=== PATIENT | female | born 1945 | race Caucasian/White ===

== ENCOUNTER 2020-06-19 10:55 | Emergency (ER) | payer MEDICARE, MEDICAID, SELFPAY ==
--- NOTE | ~2020-06-19 | CT_ITS ---
EXAMINATION: CT ABDOMEN AND PELVIS WITH CONTRAST CLINICAL INFORMATION: Perineal skin infection. Rule out abscess COMPARISON: None TECHNIQUE: Multidetector volumetric images were obtained from the superior aspect of the liver through the pubic symphysis following administration 85 mL of Omnipaque 350 intravenous contrast. Sagittal and coronal reformatted images were obtained on the technologist's workstation. Oral contrast: No This CT examination was performed using dose optimization techniques as appropriate, variously including the following: *Automated exposure control *Adjustment of mA and/or kV according to patient size (this includes techniques or standardized protocols for targeted exams where dose is matched to indication/reason for exam; i.e. extremities or head) *Use of iterative reconstruction technique DLP: 498 mGy-cm FINDINGS: LUNG BASES: There is diffuse emphysematous changes of both lungs with no focal lesion seen. The heart size is normal. LIVER, GALLBLADDER, AND BILIARY TREE: The liver is normal in size, shape, and attenuation. No focal hepatic lesion or biliary ductal dilatation is present. The gallbladder was surgically removed. PANCREAS: Unremarkable. SPLEEN: Unremarkable. ADRENAL GLANDS: Unremarkable. KIDNEYS AND URETERS: The kidneys are normal in size, shape, and attenuation. No hydronephrosis, hydroureter, or calculi seen. No perinephric stranding. BLADDER: Unremarkable. GASTROINTESTINAL TRACT: There is moderate stool, diverticuli and gas seen throughout the colon without any significant distention the small bowel loops are normal caliber. The stomach is nondistended. The appendix is normal caliber. There is no free air or free fluid. ABDOMINAL WALL: No significant hernia is appreciated. LYMPH NODES: Normal. VASCULAR: Unremarkable. PELVIC VISCERA: There is no free fluid. No free air seen. No abnormal inguinal or pelvic lymph nodes seen. There is no mass, abscess or free collection in the perineal region. There is nonspecific mild mural thickening of the anorectal junction but no focal mass seen OSSEOUS STRUCTURES: There is diffuse osteopenia with osteoporotic compression deformities L5, L4 L2, T12 vertebra. CT/CT abdomen pelvis w con IMPRESSION: Nonspecific mild mural thickening of anorectal junction. No mass identified. There is no perineal or ischiorectal abscess. Diffuse colonic diverticulosis without diverticulitis..
[2020-06-19 11:08] VITALS: BP 121/70; BP 138/90; PULSE 100; PULSE 118; RESP 18; TEMP 37.2; O2SAT 98; BMI 20.2
[2020-06-19 14:19] LABS: Glucose Urine UA NEG (NEG); Leukocyte Esterase Urine NEG (NEG); Nitrite Urine NEG (NEG); PH 5.5 (5.0-8.0); Specific Gravity - Urine >= 1.030 (1.005-1.025); Urine Blood NEG (NEG); Urine Ketones 5 MG/DL (NEG); Urine Protein 1+ MG/DL (NEG-TRACE)
[2020-06-19 14:20] LABS: Appearance Urine HAZY; Color Urine YELLOW
[2020-06-19 14:30] LABS: Bacteria Urine TRACE /LPF; Mucus Urine 2+ /LPF; RBC Urine 0-2 /HPF (0); Squamous Epithelial Cell Urine 2+ /LPF
[2020-06-19 14:44] LABS: Basophils Percent Auto 0.3 % (0-2); Eosinophils Percent Auto 0.3 % (0-4); Hematocrit 39.9 % (37-47); Hemoglobin 12.8 g/dl (12.0-16.0); Imm Gran Abs Auto 0.04 X10*3/uL (0.00-0.03); Imm Gran Pct Auto 0.4 % (0.0-0.4); Lymphocytes Absolute Auto 0.5 X10*3/uL (1.2-4.9); Lymphocytes Percent Auto 4.9 % (20-40); MANUAL DIFF FLAG SCAN; Mean Corpuscular HGB Conc 32.1 g/dl (31.0-35.0); Mean Corpuscular Hemoglobin 29.6 pg (27.0-33.0); Mean Corpuscular Volume 92.4 fL (80-98); Mean Platelet Volume 9.2 fL (9.4-12.3); Monocytes Percent Auto 9.8 % (2-11); Neutrophils Absolute Auto 8.8 X10*3/uL (2.0-8.3); Neutrophils Percent Auto 84.3 % (45-73); Platelet Count 316 X10*3/uL (160-400); Red Blood Count 4.32 X10*6/uL (4.20-5.50); Red Cell Distribution Width 12.9 % (11.0-16.0); SCAN SMEAR FLAG 1; White Blood Count 10.5 X10*3/uL (4.8-10.8)
[2020-06-19] MEDS: Doxycycline Hyclate 100 MG in 0.9 % Sodium Chloride 250 ML 166.67 MG IV (14:46)
[2020-06-19] MEDS: 0.9 % Sodium Chloride 1,000 ML 999 ML IVCONT (14:47)
[2020-06-19 14:52] VITALS: BP 102/43; PULSE 85; RESP 18; TEMP 36.4; O2SAT 98
[2020-06-19 14:59] LABS: Lactic Acid 3.1 mmol/L (0.5-2.0)
[2020-06-19 15:03] LABS: Alanine Aminotransferase 12 U/L (0-31); Albumin Level 3.7 g/dL (3.5-5.0); Alkaline Phosphatase 93 U/L (39-117); Anion Gap 15 (12-20); Aspartate Amino Transferase 19 U/L (5-31); Bilirubin Direct 0.2 mg/dL (0.0-0.5); Bilirubin Total 0.6 mg/dL (0.0-1.0); Blood Urea Nitrogen 23 mg/dL (9-16); Calcium 8.9 mg/dL (8.4-10.2); Carbon Dioxide 27 mmol/L (22-29); Chloride 105 mmol/L (96-108); Creatinine Clr Calc Pharmacy 67.1; Estimated Glomerular Filt Rate > 60; Glucose Random 97 mg/dL (60-115); Potassium 4.6 mmol/L (3.3-5.1); Sodium 142 mmol/L (135-145); Total Protein 6.5 g/dL (6.5-8.0)
[2020-06-19 15:17] LABS: SLIDE REVIEW VERIFIED
[2020-06-19] MEDS: Nystatin Cream 15 GM TUBE 1 APPL TOPICAL (15:21)
--- NOTE | 2020-06-19 15:29 | PC.NURSE ---
pt moved to room 18 for more extensive medical workup. pt offers no new complaints, appears cheerful. iv established, blood labs an cx obtained and sent. medicated per emar. sinus rhythm on tele, hr [address] scans. [facility] staff at bedside. theo.
[2020-06-19] MEDS: iohexoL 350 MG/ML 75 ML INFUS..BTL IV (15:44)
[2020-06-19 16:16] VITALS: BP 122/43; PULSE 79; TEMP 36.6; O2SAT 98
--- NOTE | 2020-06-19 16:27 | ED_ITS ---
HPI - General Adult General Chief complaint: Fall Stated complaint: FALL FROM W/C,R ARM SKIN TEAR,+COLLAR Time Seen by Provider: 06/19/20 11:53 History of Present Illness HPI narrative: Patient is a retirement patient with her attendant who had a fall while transferring from wheelchair to bed and was found on the floor unable to get up but fully conscious alert with no complaints of any new injury or pain, she remembers the fall she denies any headache or neck pain Her [employer] who knows her well voiced concern that she might have a UTI as she seems to be a little more confused than normal over past weeks but the patient has no complaint of burning with urination or fever or nausea The [employer] also is concerned about a worsening wound in her groin area and gluteal area The [employer] says the diaper is changed frequently Related Data Previous Rx's Medication Instructions Recorded ascorbic acid (vitamin C) 1,000 mg 1 g PO BID 90 Days #180 tab 05/05/20 tablet methenamine hippurate 1 gram tablet 1 g PO BID #56 tab 05/05/20 omeprazole 20 mg capsule,delayed 20 mg PO DAILY #90 cap 05/05/20 release ferrous sulfate 325 mg (65 mg 325 mg PO BID #180 tab 05/22/20 iron) tablet Lactobacil rhamnosus GG 10 billion 1 tab PO QAM #28 ea 05/29/20 cell-inulin 200 mg chewable tablet alendronate 70 mg tablet 70 mg PO QWEEK #4 tab 05/29/20 ergocalciferol (vitamin D2) 1,250 1,250 mcg PO QWEEK #4 cap 05/29/20 mcg (50,000 unit) capsule levothyroxine 75 mcg tablet 37.5 mcg PO QAM #14 tab 05/29/20 nitrofurantoin 100 mg PO .QD 30 Days #30 cap 05/30/20 monohydrate/macrocrystals 100 mg capsule clindamycin HCl 300 mg capsule 300 mg PO BID 7 Days #14 cap 06/09/20 multivitamin 1 tab PO QAM #90 tab 06/17/20 cefuroxime axetil 250 mg PO BID 7 Days #14 tab 06/19/20 doxycycline hyclate 100 mg PO BID 7 Days #14 cap 06/19/20 Allergies Allergy/AdvReac Type Severity Reaction Status Date / Time citalopram Allergy Unknown Unknown Verified 04/18/20 11:19 lamotrigine [Lamotrigine] Allergy Unknown UNKNOWN Verified 04/18/20 11:19 Penicillins Allergy Unknown UNKNOWN Verified 04/18/20 11:19 Sulfa (Sulfonamide Allergy Unknown UNKNOWN Verified 04/18/20 11:19 Antibiotics) Review of Systems Review of Systems: Positive for abrasion to left forearm, confusion, wound to perineum Negatives are no fever no chills no dizziness no headache no neck pain no back pain no numbness weakness or tingling no chest pain no shortness of breath, no abdominal pain no dysuria no urinary frequency PMFSH Past Medical History Source: nursing notes reviewed Medical History (Updated 06/19/20 @ 18:08 by ELIF Larkin) Acquired hypothyroidism Anxiety Calculus of kidney Constipation Dyslipidemia Encephalopathy Epilepsy GERD (gastroesophageal reflux disease) Hx of breast cancer Hypothyroidism Osteoporosis Pressure ulcer Schizophrenia Vitamin D deficiency Surgical History History of bilateral mastectomy History of extraction of renal calculus History of left hip replacement Family History Family History Father Lymphoma Mother Medical history unknown Social History Social History Alcohol intake: never Smoking Status: Never smoker Use of substances other than those prescribed or required for medical reasons: No Advance Directives: Yes Advance Directives on File: Yes Advance Directives Date on File: 06/19/20 Physical Exam Vital Signs: Vital Signs: Last Vital Signs Temp 97.9 F 06/19/20 16:16 Pulse 79 06/19/20 16:16 Resp 18 06/19/20 14:52 BP 122/43 L 06/19/20 16:16 Pulse Ox 98 06/19/20 16:16 Body Mass Index 20.2 General appearance no acute distress the patient is very cheerful and barbra ative and comfortable appearing Head is normocephalic atraumatic The neck is supple and nontender Chest is clear to auscultation with full symmetric equal breath sounds The heart no murmur auscultated The abdomen soft nontender The skin exam the perineum the vulva and the inferior portions of the buttocks are very red they are warm to the touch there is some scaly rash, no significant tenderness Extremities no swelling or deformities Neuro there is no facial asymmetry, there is no focal motor deficit Course Course Course Narrative: Patient was initially tachycardic with a pulse of [address] hydration came down to 79 On initial lactate was 3.1 Case was discussed with Dr. Irving who examined the patient and felt if lactate comes down and patient remains well appearing with stable vital signs improved after hydration that patient could be discharged on antibiotic At 18:00 case was signed out to physician habilitation assistant iman to check the lactate and admit or discharge patient depending on results Medical Decision Making Lab Data Lab results reviewed: Yes I reviewed the patient's lab results. Result diagrams: 06/19/20 14:35 06/19/20 14:35 Labs: Lab Results 06/19/20 06/19/20 06/19/20 Range/Units 14:04 14:35 14:35 WBC 10.5 (4.8-10.8) X10*3/uL RBC 4.32 (4.20-5.50) X10*6/uL Hgb 12.8 (12.0-16.0) g/dl Hct 39.9 (37-47) % MCV 92.4 (80-98) fL MCH 29.6 (27.0-33.0) pg MCHC 32.1 (31.0-35.0) g/dl RDW 12.9 (11.0-16.0) % Plt Count 316 (160-400) X10*3/uL MPV 9.2 L (9.4-12.3) fL Immature Gran % (Auto) 0.4 (0.0-0.4) % Neut % (Auto) 84.3 H (45-73) % Lymph % (Auto) 4.9 L (20-40) % [place] % (Auto) 9.8 (2-11) % Eos % (Auto) 0.3 (0-4) % Baso % (Auto) 0.3 (0-2) % Lymph # (Auto) 0.5 L (1.2-4.9) X10*3/uL [place] # (Auto) 1.0 (0.1-1.2) X10*3/uL Eos # (Auto) 0.0 (0.0-0.4) X10*3/uL Baso # (Auto) 0.0 (0.0-0.2) X10*3/uL Abs Immat Gran (auto) 0.04 H (0.00-0.03) X10*3/uL Absolute Neuts (auto) 8.8 H (2.0-8.3) X10*3/uL Absolute Nucleated RBC 0.000 (0.0-0.012) X10*3/uL Nucleated RBC % (auto) 0.0 (0.0-0.2) /100WBC Smear Tech's Comments VERIFIED Sodium (135-145) mmol/L Potassium (3.3-5.1) mmol/L Chloride (96-108) mmol/L Carbon Dioxide (22-29) mmol/L Anion Gap (12-20) BUN (9-16) mg/dL Creatinine (0.5-1.4) mg/dL Estim Creat Clear Calc Estimated GFR Random Glucose (60-115) mg/dL Lactic Acid 3.1 H* (0.5-2.0) mmol/L Lactic Acid Fup @ 2Hr (0.5-2.0) mmol/L Calcium (8.4-10.2) mg/dL Total Bilirubin (0.0-1.0) mg/dL Direct Bilirubin (0.0-0.5) mg/dL AST (5-31) U/L ALT (0-31) U/L Alkaline Phosphatase (39-117) U/L Total Protein (6.5-8.0) g/dL Albumin (3.5-5.0) g/dL Urine Color YELLOW Urine Appearance HAZY Urine pH 5.5 (5.0-8.0) Ur Specific [place] >= 1.030 H (1.005-1.025) Urine Protein 1+ H (NEG-TRACE) MG/DL Urine Glucose (UA) NEG (NEG) MG/DL Urine Ketones 5 (NEG) MG/DL Urine Blood NEG (NEG) Urine Nitrite NEG (NEG) Ur Leukocyte Esterase NEG (NEG) Urine RBC 0-2 (0) /HPF Urine WBC 1-4 (0-4) /HPF Ur Squamous Epith Cells 2+ /LPF Urine Bacteria TRACE /LPF Urine Mucus 2+ /LPF 06/19/20 06/19/20 Range/Units 14:35 17:06 WBC (4.8-10.8) X10*3/uL RBC (4.20-5.50) X10*6/uL Hgb (12.0-16.0) g/dl Hct (37-47) % MCV (80-98) fL MCH (27.0-33.0) pg MCHC (31.0-35.0) g/dl RDW (11.0-16.0) % Plt Count (160-400) X10*3/uL MPV (9.4-12.3) fL Immature Gran % (Auto) (0.0-0.4) % Neut % (Auto) (45-73) % Lymph % (Auto) (20-40) % [place] % (Auto) (2-11) % Eos % (Auto) (0-4) % Baso % (Auto) (0-2) % Lymph # (Auto) (1.2-4.9) X10*3/uL [place] # (Auto) (0.1-1.2) X10*3/uL Eos # (Auto) (0.0-0.4) X10*3/uL Baso # (Auto) (0.0-0.2) X10*3/uL Abs Immat Gran (auto) (0.00-0.03) X10*3/uL Absolute Neuts (auto) (2.0-8.3) X10*3/uL Absolute Nucleated RBC (0.0-0.012) X10*3/uL Nucleated RBC % (auto) (0.0-0.2) /100WBC Smear Tech's Comments Sodium 142 (135-145) mmol/L Potassium 4.6 (3.3-5.1) mmol/L Chloride 105 (96-108) mmol/L Carbon Dioxide 27 (22-29) mmol/L Anion Gap 15 (12-20) BUN 23 H (9-16) mg/dL Creatinine 0.70 (0.5-1.4) mg/dL Estim Creat Clear Calc 67.1 Estimated GFR > 60 Random Glucose 97 (60-115) mg/dL Lactic Acid (0.5-2.0) mmol/L Lactic Acid Fup @ 2Hr 1.0 (0.5-2.0) mmol/L Calcium 8.9 (8.4-10.2) mg/dL Total Bilirubin 0.6 (0.0-1.0) mg/dL Direct Bilirubin 0.2 (0.0-0.5) mg/dL AST 19 (5-31) U/L ALT 12 (0-31) U/L Alkaline Phosphatase 93 (39-117) U/L Total Protein 6.5 (6.5-8.0) g/dL Albumin 3.7 (3.5-5.0) g/dL Urine Color Urine Appearance Urine pH (5.0-8.0) Ur Specific [place] (1.005-1.025) Urine Protein (NEG-TRACE) MG/DL Urine Glucose (UA) (NEG) MG/DL Urine Ketones (NEG) MG/DL Urine Blood (NEG) Urine Nitrite (NEG) Ur Leukocyte Esterase (NEG) Urine RBC (0) /HPF Urine WBC (0-4) /HPF Ur Squamous Epith Cells /LPF Urine Bacteria /LPF Urine Mucus /LPF Imaging Data CT scan - abdomen: Radiologist's impression: VASCULAR: Unremarkable. PELVIC VISCERA: There is no free fluid. No free air seen. No abnormal inguinal or pelvic lymph nodes seen. There is no mass, abscess or free collection in the perineal region. There is nonspecific mild mural thickening of the anorectal junction but no focal mass seen OSSEOUS STRUCTURES: There is diffuse osteopenia with osteoporotic compression deformities L5, L4 L2, T12 vertebra. CT/CT abdomen pelvis w con IMPRESSION: Nonspecific mild mural thickening of anorectal junction. No mass identified. There is no perineal or ischiorectal abscess. Diffuse colonic diverticulosis without diverticulitis.. Discharge Plan Discharge Clinical Impression: Cellulitis Qualifiers: Site of cellulitis: buttock Qualified Code(s): L03.317 - Cellulitis of buttock Patient Disposition: Home, Self-Care Additional Instructions: Follow with primary care doctor or wound clinic in 2-3 days for recheck Return any time for fever confusion weakness pain any worse condition or any c oncerns Prescriptions: New cefuroxime axetil 250 mg tablet 250 mg PO BID 7 Days Qty: 14 RF: 0 doxycycline hyclate 100 mg capsule 100 mg PO BID 7 Days Qty: 14 RF: 0 No Action methenamine hippurate 1 gram tablet 1 g PO BID Qty: 56 RF: 3 omeprazole 20 mg capsule,delayed release(DR/EC) 20 mg PO DAILY Qty: 90 RF: 1 ascorbic acid (vitamin C) 1,000 mg tablet 1 g PO BID 90 Days Qty: 180 RF: 3 ferrous sulfate 325 mg (65 mg iron) tablet 325 mg PO BID Qty: 180 RF: 3 Lactobac. rhamnosus GG-inulin [[facility] QFPay [facility]] 10 billion cell - 200 mg tablet,chewable 1 tab PO QAM Qty: 28 RF: 0 alendronate 70 mg tablet 70 mg PO QWEEK Qty: 4 RF: 0 ergocalciferol (vitamin D2) [Vitamin D2] 1,250 mcg (50,000 unit) capsule 1,250 mcg PO QWEEK Qty: 4 RF: 0 levothyroxine 75 mcg tablet 37.5 mcg PO QAM Qty: 14 RF: 0 nitrofurantoin monohyd/m-cryst 100 mg capsule 100 mg PO .QD 30 Days Qty: 30 RF: 5 multivitamin [One Daily Multivitamin] Tablet 1 tab PO QAM Qty: 90 RF: 0 clindamycin HCl 300 mg capsule 300 mg PO BID 7 Days Qty: 14 RF: 0 Referrals: Gume Willams MD [Physician] - 2 days (Infected perineal wound being treated with Keflex and doxycycline, worsening over past several days)
[2020-06-19 16:38] LABS: Reflex Lactate? Lactic Acid Added
--- NOTE | 2020-06-19 16:38 | PC.NURSE ---
pt fluids infusing slowly d/t constant arm bending. pedi board placed underneath l elbow to facilitate fluid infusion.
[2020-06-19 19:00] VITALS: BP 136/69; PULSE 97; RESP 18; O2SAT 98
== END 2020-06-19 20:29 | disposition home or self-care (01) ==
PROVIDERS: Physician Assistant Medical; Emergency Provider Emergency Medicine; PCP Internal Medicine
DX: L03.317 Cellulitis of buttock (principal); R00.0 Tachycardia, unspecified; S81.811A Laceration without foreign body, right lower leg, initial encounter; S51.801A Unspecified open wound of right forearm, initial encounter; W05.0XXA Fall from non-moving wheelchair, initial encounter; Y93.89 Activity, other specified; Y92.04 Boarding-house as the place of occurrence of the external cause; Y99.9 Unspecified external cause status; Z85.3 Personal history of malignant neoplasm of breast
CPT/HCPCS: 36415; 74177; 80048; 80076; 81001; 83605; 85025; 87040; 96361; 96365; 99284; Q9967

== ENCOUNTER 2020-06-22 08:36 | Outpatient (RCR) | payer MEDICARE, MEDICAID, SELFPAY | END 2020-07-11 14:02 | disposition home or self-care (01) | LOC: HO.WCC 08:36 | PROVIDERS: Visit Provider Surgery | DX: Z09 Encounter for follow-up examination after completed treatment for conditions other than malignant neoplasm (principal) | CPT/HCPCS: 99212; 99213 ==

== ENCOUNTER 2020-08-19 10:00 | Emergency (ER) | payer MEDICARE, MEDICAID, SELFPAY ==
--- NOTE | ~2020-08-19 | XR_ITS ---
EXAMINATION: XR CHEST CLINICAL INFORMATION: Altered mental status COMPARISON: Chest x-ray 11/01/2019 TECHNIQUE: 2 views of the chest were obtained. FINDINGS: Cardiac silhouette is at the upper limits of normal in size. The lungs are hyperinflated. There is no lobar consolidation. Chronic small left-sided pleural effusion. No pneumothorax. Diffuse osteopenia with severe degenerative changes of the spine. XR/XR chest 2V IMPRESSION: Stable chronic changes of the lungs with unchanged small left-sided pleural effusion.
[2020-08-19 10:14] VITALS: BP 108/65; BP 115/50; PULSE 72; PULSE 80; RESP 17; TEMP 36.5; O2SAT 99; BMI 23.8
--- NOTE | 2020-08-19 10:29 | ED.GENADULT ---
HPI - General Adult General Chief complaint: General Medical Stated complaint: ams Time Seen by Provider: 08/19/20 10:22 Source: patient Mode of arrival: EMS Limitations: altered mental status History of Present Illness HPI narrative: Patient is a 74-year-old female with a past medical history of anxiety, bipolar, GERD, hypothyroid, kidney stones, osteoporosis, schizophrenia, recurrent UTIs, and seizure disorder who presents with altered mental status. Patient lives in residential home in [place], they called EMS because the patient had a temp of 85 degrees, on EMS arrival the temp was 96.8 degrees. The [facility] staff states that ?patient was pointing at light?. Patient is not a very good historian, her legal guardian is her brother Eliseo Aguirre, she has any folder with her today which contains a DNR order. Patient uses a wheelchair and is unsteady on her feet. She denies falling, she denies any chest pain, shortness of breath, or pain anywhere in her body. She is unaccompanied. I spoke with Giuliana, radiation safety officer yard general car supervisor for her residential home, she can be reached at [phone], she gives a background of patient has been refusing a most of her medications for a while, she states they are not even sure what her baseline is now. They state she has been caught staring off into space and telling staff she does not feel right . She has had some delusions stating that things are falling on her. She had 3 seizures in the last week that Giuliana states her seizures are cyclical and they do increase this time a year, she is on Depakote. She is also on a standing antibiotic, Bactrim for recurrent UTIs. They were concerned because they kept getting a low temperature despite trying for different thermometers. Related Data Previous Rx's Medication Instructions Recorded ascorbic acid (vitamin C) 1,000 mg 1 g PO BID 90 Days #180 tab 05/05/20 tablet methenamine hippurate 1 gram tablet 1 g PO BID #56 tab 05/05/20 ferrous sulfate 325 mg (65 mg 325 mg PO BID #180 tab 05/22/20 iron) tablet nitrofurantoin 100 mg PO .QD 30 Days #30 cap 05/30/20 monohydrate/macrocrystals 100 mg capsule clindamycin HCl 300 mg capsule 300 mg PO BID 7 Days #14 cap 06/09/20 multivitamin 1 tab PO QAM #90 tab 06/17/20 cefuroxime axetil 250 mg PO BID 7 Days #14 tab 06/19/20 doxycycline hyclate 100 mg PO BID 7 Days #14 cap 06/19/20 Lactobacil rhamnosus GG 10 billion 1 tab PO QAM #28 ea 06/26/20 cell-inulin 200 mg chewable tablet levothyroxine 75 mcg tablet 37.5 mcg PO DAILY #14 tab 06/26/20 omeprazole 20 mg capsule,delayed 20 mg PO QAM #28 cap 06/26/20 release sennosides 8.6 mg-docusate sodium 1 tab PO BID #56 tab 06/26/20 50 mg tablet acetaminophen 650 mg 650 mg PO Q8H PRN #90 tab 06/30/20 tablet,extended release ergocalciferol (vitamin D2) 1,250 1,250 mcg PO QWEEK #4 cap 07/29/20 mcg (50,000 unit) capsule alendronate 70 mg tablet 70 mg PO QWEEK #4 tab 08/19/20 cefuroxime axetil 500 mg PO Q12H #20 tab 08/19/20 Allergies Allergy/AdvReac Type Severity Reaction Status Date / Time citalopram Allergy Unknown Unknown Verified 04/18/20 11:19 lamotrigine [Lamotrigine] Allergy Unknown UNKNOWN Verified 04/18/20 11:19 Penicillins Allergy Unknown UNKNOWN Verified 04/18/20 11:19 Sulfa (Sulfonamide Allergy Unknown UNKNOWN Verified 04/18/20 11:19 Antibiotics) Review of Systems Review of Systems: Yes all other systems are reviewed and are negative Neurologic: Reports confusion Psychiatric: Psychiatric: Reports confusion [facility] Past Medical History Medical History Acquired hypothyroidism Anxiety Calculus of kidney Constipation Dyslipidemia Encephalopathy Epilepsy GERD (gastroesophageal reflux disease) Hx of breast cancer Hypothyroidism Osteoporosis Pressure ulcer Schizophrenia Vitamin D deficiency Surgical History History of bilateral mastectomy History of extraction of renal calculus History of left hip replacement Family History Family History Father Lymphoma Mother Medical history unknown Social History Social History Alcohol intake: never Smoking Status: Never smoker Use of substances other than those prescribed or required for medical reasons: No Advance Directives: Yes Advance Directives on File: Yes Advance Directives Date on File: 06/19/20 Physical Exam Vital Signs: Vital Signs: Last Vital Signs Temp 97.8 F 08/19/20 13:31 Pulse 70 08/19/20 15:25 Resp 16 08/19/20 15:25 BP 105/41 L 08/19/20 15:25 Pulse Ox 99 08/19/20 15:25 Body Mass Index 23.8 Const: General: cooperative, healthy appearing, alert, awake and confusion; No ill appearing, intoxicated appearing or lethargic Nutritional Appearance: thin Orientation/consciousness: oriented to person, oriented to place, No oriented to time, confusion and No lethargic Limitations: altered mental status HENMT: Head: Yes normal to inspection, Yes normocephalic and Yes atraumatic General nose exam: Normal external nose present Face and sinus: Yes normal facial exam Eyes: General: appearance normal, both eyes and all related structures Pupils: Equal, round and reactive pupils present EOM: EOMs intact bilaterally Chest: Chest palpation & inspection: normal inspection of the chest Resp: Effort & Inspection: normal respiratory effort and able to speak in complete sentences Auscultation: clear to auscultation bilaterally Cardio: Rate: regular rate Rhythm: regular rhythm Heart sounds: normal S1 and S2 GI: Inspection: Yes normal to inspection Palpation (GI): Soft to palpation and nontender Neuro: General: oriented to person, oriented to place, No oriented to time, confusion and Unable to assess gait Cranial nerves: Yes Equal, round and reactive pupils present Gait exam (Neuro): Unable to assess gait Extrem: Other: Right lateral knee has large, smooth soft mobile 5 cm round cyst. No signs of infection noted, no ecchymosis. Good blood flow below the knee, pulses intact General: Yes normal to inspection and Yes no pedal edema Psych: Speech and movement: Normal speech and movement present Attitude: cooperative Course Course Course Narrative: Patient is a pleasantly confused 74-year-old female with a past medical history of anxiety, bipolar, GERD, hypothyroid, kidney stones, osteoporosis, schizophrenia, recurrent UTIs, and seizure disorder who presents with altered mental status. Ras, the on-call yard general car supervisor from the penitentiary where the patient lives [phone] is the tooth cutter contact wheel, patient's brother Eliseo is her healthcare proxy and patient is DNR, I have updated her DNR status in the system according to paperwork in her binder. Patient has headed delusions, refusing to take her medications and a questionable low body temp earlier this morning. Will do a thorough workup, get EKG, UA, u tox, Depakote level and regular labs as well as chest x-ray, head CT and reassess. Reevaluation(s) Reevaluation #1: WBC 3.9, coags WNL, ammonia negative troponin negative, valproic acid level low at 47.3, Chest x-ray negative. UA+ utox pending, covid pending, TSH pending. Time: 13:05 Reevaluation #2: TSH WNL, utox negative, COVID pending Time: 14:25 Reevaluation #3: Patient's BP a little bit low, how will get lactic acid and blood cultures. Spoke with Giuliana from the penitentiary, advised about cyst on right lateral knee, they are aware of it but she will make sure they follow up on it. Also advised if lactic acid within normal limits, will discharge back to penitentiary. If it is elevated, will likely admit patient. Time: 17:47 Additional Reevaluation(s): LA WNL, will give 1L LR as patient's blood pressures are still a little soft. Likely discharge home. Please call Giuliana [phone] with dispo Signing out patient to Michell Mcbride NP Medical Decision Making Lab Data Result diagrams: 08/19/20 12:22 08/19/20 12:22 Labs: Lab Results 08/19/20 08/19/20 08/19/20 Range/Units 12:21 12:21 12:22 WBC 3.9 L (4.8-10.8) X10*3/uL RBC 4.39 (4.20-5.50) X10*6/uL Hgb 12.9 (12.0-16.0) g/dl Hct 40.7 (37-47) % MCV 92.7 (80-98) fL MCH 29.4 (27.0-33.0) pg MCHC 31.7 (31.0-35.0) g/dl RDW 12.7 (11.0-16.0) % Plt Count 216 D (160-400) X10*3/uL MPV 9.0 L (9.4-12.3) fL Immature Gran % (Auto) 0.3 (0.0-0.4) % Neut % (Auto) 69.6 (45-73) % Lymph % (Auto) 17.3 L (20-40) % [place] % (Auto) 9.2 (2-11) % Eos % (Auto) 2.8 (0-4) % Baso % (Auto) 0.8 (0-2) % Lymph # (Auto) 0.7 L (1.2-4.9) X10*3/uL [place] # (Auto) 0.4 (0.1-1.2) X10*3/uL Eos # (Auto) 0.1 (0.0-0.4) X10*3/uL Baso # (Auto) 0.0 (0.0-0.2) X10*3/uL Abs Immat Gran (auto) 0.01 (0.00-0.03) X10*3/uL Absolute Neuts (auto) 2.7 (2.0-8.3) X10*3/uL Absolute Nucleated RBC 0.000 (0.0-0.012) X10*3/uL Nucleated RBC % (auto) 0.0 (0.0-0.2) /100WBC Smear Tech's Comments VERIFIED PT (10.8-13.0) SEC INR (0.9-1.1) APTT (24.1-38.0) SEC Sodium (135-145) mmol/L Potassium (3.3-5.1) mmol/L Chloride (96-108) mmol/L Carbon Dioxide (22-29) mmol/L Anion Gap (12-20) BUN (9-16) mg/dL Creatinine (0.5-1.4) mg/dL Estim Creat Clear Calc Estimated GFR Random Glucose (60-115) mg/dL Lactic Acid (0.5-2.0) mmol/L Calcium (8.4-10.2) mg/dL Magnesium (1.6-2.6) mg/dL Ammonia (13-55) umol/L Troponin I High Sens (<3.5-17.0) ng/L TSH (0.32-4.0) uIU/mL Urine Color YELLOW Urine Appearance CLEAR Urine pH 5.5 (5.0-8.0) Ur Specific [place] <= 1.005 (1.005-1.025) Urine Protein NEG (NEG-TRACE) MG/DL Urine Glucose (UA) NEG (NEG) MG/DL Urine Ketones NEG (NEG) MG/DL Urine Blood NEG (NEG) Urine Nitrite NEG (NEG) Ur Leukocyte Esterase 1+ H (NEG) Urine RBC 0-2 (0) /HPF Urine WBC 5-9 H (0-4) /HPF Ur Squamous Epith Cells 1+ /LPF Urine Bacteria TRACE /LPF Urine Opiates Screen Not Detected (Not Detect) Ur Barbiturates Screen Not Detected (Not Detect) Valproic Acid (50.0-100.0) mcg/mL Ur Phencyclidine Scrn Not Detected (Not Detect) Ur Amphetamines Screen Not Detected (Not Detect) U Benzodiazepines Scrn Not Detected (Not Detect) Urine Cocaine Screen Not Detected (Not Detect) U Marijuana (THC) Screen Not Detected (Not Detect) COVID-19 (FABIOLA) COVID-19 Clin Com 08/19/20 08/19/20 08/19/20 Range/Units 12:22 12:22 12:22 WBC (4.8-10.8) X10*3/uL RBC (4.20-5.50) X10*6/uL Hgb (12.0-16.0) g/dl Hct (37-47) % MCV (80-98) fL MCH (27.0-33.0) pg MCHC (31.0-35.0) g/dl RDW (11.0-16.0) % Plt Count (160-400) X10*3/uL MPV (9.4-12.3) fL Immature Gran % (Auto) (0.0-0.4) % Neut % (Auto) (45-73) % Lymph % (Auto) (20-40) % [place] % (Auto) (2-11) % Eos % (Auto) (0-4) % Baso % (Auto) (0-2) % Lymph # (Auto) (1.2-4.9) X10*3/uL [place] # (Auto) (0.1-1.2) X10*3/uL Eos # (Auto) (0.0-0.4) X10*3/uL Baso # (Auto) (0.0-0.2) X10*3/uL Abs Immat Gran (auto) (0.00-0.03) X10*3/uL Absolute Neuts (auto) (2.0-8.3) X10*3/uL Absolute Nucleated RBC (0.0-0.012) X10*3/uL Nucleated RBC % (auto) (0.0-0.2) /100WBC Smear Tech's Comments PT 11.6 (10.8-13.0) SEC INR 1.0 (0.9-1.1) APTT 32.0 (24.1-38.0) SEC Sodium 143 (135-145) mmol/L Potassium 4.1 (3.3-5.1) mmol/L Chloride 105 (96-108) mmol/L Carbon Dioxide 31 H (22-29) mmol/L Anion Gap 11 L (12-20) BUN 12 (9-16) mg/dL Creatinine 0.61 (0.5-1.4) mg/dL Estim Creat Clear Calc 62.1 Estimated GFR > 60 Random Glucose 89 (60-115) mg/dL Lactic Acid (0.5-2.0) mmol/L Calcium 8.8 (8.4-10.2) mg/dL Magnesium 2.2 (1.6-2.6) mg/dL Ammonia (13-55) umol/L Troponin I High Sens (<3.5-17.0) ng/L TSH 2.31 (0.32-4.0) uIU/mL Urine Color Urine Appearance Urine pH (5.0-8.0) Ur Specific [place] (1.005-1.025) Urine Protein (NEG-TRACE) MG/DL Urine Glucose (UA) (NEG) MG/DL Urine Ketones (NEG) MG/DL Urine Blood (NEG) Urine Nitrite (NEG) Ur Leukocyte Esterase (NEG) Urine RBC (0) /HPF Urine WBC (0-4) /HPF Ur Squamous Epith Cells /LPF Urine Bacteria /LPF Urine Opiates Screen (Not Detect) Ur Barbiturates Screen (Not Detect) Valproic Acid 47.3 L (50.0-100.0) mcg/mL Ur Phencyclidine Scrn (Not Detect) Ur Amphetamines Screen (Not Detect) U Benzodiazepines Scrn (Not Detect) Urine Cocaine Screen (Not Detect) U Marijuana (THC) Screen (Not Detect) COVID-19 (FABIOLA) COVID-19 Clin Com 08/19/20 08/19/20 08/19/20 Range/Units 12:22 12:22 13:31 WBC (4.8-10.8) X10*3/uL RBC (4.20-5.50) X10*6/uL Hgb (12.0-16.0) g/dl Hct (37-47) % MCV (80-98) fL MCH (27.0-33.0) pg MCHC (31.0-35.0) g/dl RDW (11.0-16.0) % Plt Count (160-400) X10*3/uL MPV (9.4-12.3) fL Immature Gran % (Auto) (0.0-0.4) % Neut % (Auto) (45-73) % Lymph % (Auto) (20-40) % [place] % (Auto) (2-11) % Eos % (Auto) (0-4) % Baso % (Auto) (0-2) % Lymph # (Auto) (1.2-4.9) X10*3/uL [place] # (Auto) (0.1-1.2) X10*3/uL Eos # (Auto) (0.0-0.4) X10*3/uL Baso # (Auto) (0.0-0.2) X10*3/uL Abs Immat Gran (auto) (0.00-0.03) X10*3/uL Absolute Neuts (auto) (2.0-8.3) X10*3/uL Absolute Nucleated RBC (0.0-0.012) X10*3/uL Nucleated RBC % (auto) (0.0-0.2) /100WBC Smear Tech's Comments PT (10.8-13.0) SEC INR (0.9-1.1) APTT (24.1-38.0) SEC Sodium (135-145) mmol/L Potassium (3.3-5.1) mmol/L Chloride (96-108) mmol/L Carbon Dioxide (22-29) mmol/L Anion Gap (12-20) BUN (9-16) mg/dL Creatinine (0.5-1.4) mg/dL Estim Creat Clear Calc Estimated GFR Random Glucose (60-115) mg/dL Lactic Acid (0.5-2.0) mmol/L Calcium (8.4-10.2) mg/dL Magnesium (1.6-2.6) mg/dL Ammonia 41 (13-55) umol/L Troponin I High Sens 4.3 (<3.5-17.0) ng/L TSH (0.32-4.0) uIU/mL Urine Color Urine Appearance Urine pH (5.0-8.0) Ur Specific [place] (1.005-1.025) Urine Protein (NEG-TRACE) MG/DL Urine Glucose (UA) (NEG) MG/DL Urine Ketones (NEG) MG/DL Urine Blood (NEG) Urine Nitrite (NEG) Ur Leukocyte Esterase (NEG) Urine RBC (0) /HPF Urine WBC (0-4) /HPF Ur Squamous Epith Cells /LPF Urine Bacteria /LPF Urine Opiates Screen (Not Detect) Ur Barbiturates Screen (Not Detect) Valproic Acid (50.0-100.0) mcg/mL Ur Phencyclidine Scrn (Not Detect) Ur Amphetamines Screen (Not Detect) U Benzodiazepines Scrn (Not Detect) Urine Cocaine Screen (Not Detect) U Marijuana (THC) Screen (Not Detect) COVID-19 (FABIOLA) Cancelled COVID-19 Clin Com Cancelled 08/19/20 Range/Units 17:03 WBC (4.8-10.8) X10*3/uL RBC (4.20-5.50) X10*6/uL Hgb (12.0-16.0) g/dl Hct (37-47) % MCV (80-98) fL MCH (27.0-33.0) pg MCHC (31.0-35.0) g/dl RDW (11.0-16.0) % Plt Count (160-400) X10*3/uL MPV (9.4-12.3) fL Immature Gran % (Auto) (0.0-0.4) % Neut % (Auto) (45-73) % Lymph % (Auto) (20-40) % [place] % (Auto) (2-11) % Eos % (Auto) (0-4) % Baso % (Auto) (0-2) % Lymph # (Auto) (1.2-4.9) X10*3/uL [place] # (Auto) (0.1-1.2) X10*3/uL Eos # (Auto) (0.0-0.4) X10*3/uL Baso # (Auto) (0.0-0.2) X10*3/uL Abs Immat Gran (auto) (0.00-0.03) X10*3/uL Absolute Neuts (auto) (2.0-8.3) X10*3/uL Absolute Nucleated RBC (0.0-0.012) X10*3/uL Nucleated RBC % (auto) (0.0-0.2) /100WBC Smear Tech's Comments PT (10.8-13.0) SEC INR (0.9-1.1) APTT (24.1-38.0) SEC Sodium (135-145) mmol/L Potassium (3.3-5.1) mmol/L Chloride (96-108) mmol/L Carbon Dioxide (22-29) mmol/L Anion Gap (12-20) BUN (9-16) mg/dL Creatinine (0.5-1.4) mg/dL Estim Creat Clear Calc Estimated GFR Random Glucose (60-115) mg/dL Lactic Acid 1.3 (0.5-2.0) mmol/L Calcium (8.4-10.2) mg/dL Magnesium (1.6-2.6) mg/dL Ammonia (13-55) umol/L Troponin I High Sens (<3.5-17.0) ng/L TSH (0.32-4.0) uIU/mL Urine Color Urine Appearance Urine pH (5.0-8.0) Ur Specific [place] (1.005-1.025) Urine Protein (NEG-TRACE) MG/DL Urine Glucose (UA) (NEG) MG/DL Urine Ketones (NEG) MG/DL Urine Blood (NEG) Urine Nitrite (NEG) Ur Leukocyte Esterase (NEG) Urine RBC (0) /HPF Urine WBC (0-4) /HPF Ur Squamous Epith Cells /LPF Urine Bacteria /LPF Urine Opiates Screen (Not Detect) Ur Barbiturates Screen (Not Detect) Valproic Acid (50.0-100.0) mcg/mL Ur Phencyclidine Scrn (Not Detect) Ur Amphetamines Screen (Not Detect) U Benzodiazepines Scrn (Not Detect) Urine Cocaine Screen (Not Detect) U Marijuana (THC) Screen (Not Detect) COVID-19 (FABIOLA) COVID-19 Clin Com Imaging Data Chest x-ray: Attestation: I personally reviewed and interpreted this imaging study as follows: My impression: No acute pathology Radiologist's impression: [address] [id number] ReportSigned Patient: Payam Aguirre#: [id number]: 4Acct:[id number]/Sex: 74 / FADM Date: 08/19/20Loc: [email or web address].EDAttending Dr: Ordering Physician: Amy May PA-C Date of Service: 08/19/20 Procedure(s): XR chest 2V Accession Number(s): [id number] cc: Amy May PA-C~ EXAMINATION: XR CHEST CLINICAL INFORMATION: Altered mental status COMPARISON: Chest x-ray 11/01/2019 TECHNIQUE: 2 views of the chest were obtained. FINDINGS: Cardiac silhouette is at the upper limits of normal in size. The lungs are hyperinflated. There is no lobar consolidation. Chronic small left-sided pleural effusion. No pneumothorax. Diffuse osteopenia with severe degenerative changes of the spine. XR/XR chest 2V IMPRESSION: Stable chronic changes of the lungs with unchanged small left-sided pleural effusion. Dictated By:JESSICA CAREY MDSigned By:<Electronically signed by JESSICA CAREY MD in OV>08/19/20 1143 DD/ 1100TD/TT: Coutierier: PD ECG Data Attestation: I personally reviewed and interpreted this ECG as follows: Interpretation: Vent. Rate : 067 BPM Atrial Rate : 067 BPM P-R Int : 152 ms QRS Dur : 082 ms QT Int : 434 ms P-R-T Axes : 088 063 084 degrees QTc Int : 458 ms T-wave inversions in V1 V2 and V3, no previous EKGs available to follow up in system as computer system is not working. Troponin pending. Discharge Plan Discharge Clinical Impression: Acute UTI (urinary tract infection) Toro's cyst of knee Qualifiers: Laterality: right Qualified Code(s): M71.21 - Synovial cyst of popliteal space [Toro], right knee Patient Disposition: Xfer Other Transfer Details: pt going back to residential home program Instructions: Bakers Cyst (ED), Urinary Tract Infection in Older Adults (ED) Prescriptions: New cefuroxime axetil 500 mg tablet 500 mg PO Q12H Qty: 20 RF: 0 No Action methenamine hippurate 1 gram tablet 1 g PO BID Qty: 56 RF: 3 ascorbic acid (vitamin C) 1,000 mg tablet 1 g PO BID 90 Days Qty: 180 RF: 3 ferrous sulfate 325 mg (65 mg iron) tablet 325 mg PO BID Qty: 180 RF: 3 nitrofurantoin monohyd/m-cryst 100 mg capsule 100 mg PO .QD 30 Days Qty: 30 RF: 5 multivitamin [One Daily Multivitamin] Tablet 1 tab PO QAM Qty: 90 RF: 0 omeprazole 20 mg capsule,delayed release(DR/EC) 20 mg PO QAM Qty: 28 RF: 3 Lactobac. rhamnosus GG-inulin [[facility]] 10 billion cell -200 mg tablet,chewable 1 tab PO QAM Qty: 28 RF: 3 levothyroxine 75 mcg tablet 37.5 mcg PO DAILY Qty: 14 RF: 3 sennosides-docusate sodium [Stool Softener-Stimulant Laxat] 8.6-50 mg tablet 1 tab PO BID Qty: 56 RF: 3 acetaminophen [8HR Muscle Aches-Pain] 650 mg tablet extended release 650 mg PO Q8H PRN (Reason: for pain) Qty: 90 RF: 1 ergocalciferol (vitamin D2) [Vitamin D2] 1,250 mcg (50,000 unit) capsule 1,250 mcg PO QWEEK Qty: 4 RF: 0 alendronate 70 mg tablet 70 mg PO QWEEK Qty: 4 RF: 0 cefuroxime axetil 250 mg tablet 250 mg PO BID 7 Days Qty: 14 RF: 0 doxycycline hyclate 100 mg capsule 100 mg PO BID 7 Days Qty: 14 RF: 0 clindamycin HCl 300 mg capsule 300 mg PO BID 7 Days Qty: 14 RF: 0
--- NOTE | 2020-08-19 10:48 | ECG_ITS ---
Test Reason : LOW TEMP Blood Pressure : / mmHG Vent. Rate : 067 BPM Atrial Rate : 067 BPM P-R Int : 152 ms QRS Dur : 082 ms QT Int : 434 ms P-R-T Axes : 088 063 084 degrees QTc Int : 458 ms Normal sinus rhythm T wave abnormality, consider anterior ischemia Abnormal ECG When compared with ECG of 01-NOV-2019 17:29, T wave inversion now evident in Anterior leads Referred By: Amy May Electronically Signed By:Mark France
--- NOTE | 2020-08-19 11:33 | PC.NURSE ---
pt is a/o x 2 no sob/wilmer noted lungs - cta.
[2020-08-19 12:30] LABS: Basophils Percent Auto 0.8 % (0-2); Eosinophils Absolute Auto 0.1 X10*3/uL (0.0-0.4); Eosinophils Percent Auto 2.8 % (0-4); Hematocrit 40.7 % (37-47); Hemoglobin 12.9 g/dl (12.0-16.0); Imm Gran Abs Auto 0.01 X10*3/uL (0.00-0.03); Imm Gran Pct Auto 0.3 % (0.0-0.4); Lymphocytes Absolute Auto 0.7 X10*3/uL (1.2-4.9); Lymphocytes Percent Auto 17.3 % (20-40); MANUAL DIFF FLAG SCAN; Mean Corpuscular HGB Conc 31.7 g/dl (31.0-35.0); Mean Corpuscular Hemoglobin 29.4 pg (27.0-33.0); Mean Corpuscular Volume 92.7 fL (80-98); Monocytes Absolute Auto 0.4 X10*3/uL (0.1-1.2); Monocytes Percent Auto 9.2 % (2-11); Neutrophils Absolute Auto 2.7 X10*3/uL (2.0-8.3); Neutrophils Percent Auto 69.6 % (45-73); Platelet Count 216 X10*3/uL (160-400); Red Blood Count 4.39 X10*6/uL (4.20-5.50); Red Cell Distribution Width 12.7 % (11.0-16.0); SCAN SMEAR FLAG 1; White Blood Count 3.9 X10*3/uL (4.8-10.8)
[2020-08-19 12:37] LABS: Appearance Urine CLEAR; Color Urine YELLOW; Glucose Urine UA NEG (NEG); Leukocyte Esterase Urine 1+ (NEG); Nitrite Urine NEG (NEG); PH 5.5 (5.0-8.0); Specific Gravity - Urine <= 1.005 (1.005-1.025); UACC Culture Trigger YES; Urine Blood NEG (NEG); Urine Ketones NEG (NEG); Urine Protein NEG (NEG-TRACE)
[2020-08-19 12:43] LABS: Prothrombin Time 11.6 SEC (10.8-13.0)
[2020-08-19 12:44] LABS: Bacteria Urine TRACE /LPF; RBC Urine 0-2 /HPF (0); Squamous Epithelial Cell Urine 1+ /LPF
[2020-08-19 12:48] LABS: Ammonia 41 umol/L (13-55)
[2020-08-19 12:55] LABS: Anion Gap 11 (12-20); Blood Urea Nitrogen 12 mg/dL (9-16); Calcium 8.8 mg/dL (8.4-10.2); Carbon Dioxide 31 mmol/L (22-29); Chloride 105 mmol/L (96-108); Creatinine Clr Calc Pharmacy 62.1; Estimated Glomerular Filt Rate > 60; Glucose Random 89 mg/dL (60-115); Potassium 4.1 mmol/L (3.3-5.1); Sodium 143 mmol/L (135-145)
[2020-08-19 12:56] LABS: Magnesium 2.2 mg/dL (1.6-2.6)
[2020-08-19 12:57] LABS: SLIDE REVIEW VERIFIED
[2020-08-19 13:00] LABS: Troponin-I High Sensitivity 4.3 ng/L (<3.5-17.0); Valproate 47.3 mcg/mL (50.0-100.0)
[2020-08-19 13:18] LABS: Amphetamine Screen Urine Not Detected (Not Detect); Barbiturates, Urine Not Detected (Not Detect); Benzodiazepines Screen Urine Not Detected (Not Detect); Cannabinoid Screen Urine Not Detected (Not Detect); Cocaine Screen Urine Not Detected (Not Detect); Opiate Screen Urine Not Detected (Not Detect); Phencyclidine Screen Urine Not Detected (Not Detect)
[2020-08-19 13:31] VITALS: BP 116/47; PULSE 68; RESP 16; TEMP 36.6; O2SAT 100
[2020-08-19 14:11] LABS: TSH reflex Free T4 2.31 uIU/mL (0.32-4.0)
[2020-08-19 15:25] VITALS: BP 105/41; PULSE 70; RESP 16; O2SAT 99
--- NOTE | 2020-08-19 15:32 | PC.NURSE ---
pt is awake and alert to person but confused to time palce and current events. pt denies discomfort, resps are = and nonlabored and pt is speaking in full clear sentences. awaiting disposition from ED provider.
[2020-08-19 17:35] LABS: Lactic Acid 1.3 mmol/L (0.5-2.0)
[2020-08-19] MEDS: Lactated Ringers 1,000 ML 999 ML IV (18:00)
--- NOTE | 2020-08-19 20:11 | PC.NURSE ---
building coordinator notified this RN that the patient removed her own IV. Bleeding controlled, gauze/tape applied to arm. Afterwards, this RN noticed that blood cultures were not drawn when ordered prior to this RN's shift. While attempting to insert new IV access, pt again removed this RN's new IV from left AC while this RN was attempting to secure access and obtain at least one set of blood cultures. DON Bonilla aware of this. Pt adamantly refusing second IV/needle stick. This RN advocated for patient to have oral antibiotics if possible. DON Bonilla agreed, to be medicated with PO antibiotics with plan to discharge home.
--- NOTE | 2020-08-19 20:21 | PC.NURSE ---
This RN spoke with Tani (employee from [facility]). Plan to discharge within the next hour if possible, with ride home with [facility] staff. Tani states that he has to speak with his typing pool supervisor to attempt to arrange for ride home, and will call back this RN. DON Bonilla and golf club weighter (Maria Esther) aware. Will continue to monitor.
--- NOTE | 2020-08-19 20:23 | PC.NURSE ---
Unable to obtain blood cultures, and patient adamantly refusing more blood draws (see previous notes). PO antibiotics to be given for UTI, with plan to discharge to snf. DON Bonilla aware.
[2020-08-19 20:37] VITALS: BP 156/80; PULSE 77; RESP 16; O2SAT 99
== END 2020-08-19 21:30 | disposition other institution (70) ==
PROVIDERS: Physician Assistant; Emergency Provider Emergency Medicine; PCP Internal Medicine
DX: R41.82 Altered mental status, unspecified (principal); N39.0 Urinary tract infection, site not specified; M71.21 Synovial cyst of popliteal space [Baker], right knee; E03.9 Hypothyroidism, unspecified; K21.9 Gastro-esophageal reflux disease without esophagitis; E78.5 Hyperlipidemia, unspecified; Z87.442 Personal history of urinary calculi; Z66 Do not resuscitate
CPT/HCPCS: 36415; 71046; 80048; 80164; 80307; 81001; 81003; 82140; 83605; 83735; 84443; 84484; 85025; 85610; 85730; 87086; 87635; 93005; 96361; 96365; 99284

== ENCOUNTER 2020-12-14 10:11 | Outpatient (REF) | payer MEDICARE, MEDICAID, SELFPAY ==
--- NOTE | ~2020-12-14 | US_ITS ---
EXAMINATION: US VENOUS ULTRASOUND WITH DOPPLER LOWER EXTREMITY, LEFT CLINICAL INFORMATION: Edema COMPARISON: Previous exams most recent September 2018 TECHNIQUE: Ultrasound of the deep veins is performed from the hip to the calf with compression sonography and color and pulse Doppler assessment. Spectral analysis with color-flow imaging is performed. FINDINGS: There is normal venous compression and respiratory variation and augmented flow. The visualized common femoral vein, superficial femoral vein, profunda femoral vein, popliteal vein, and the trifurcation region shows no evidence of deep venous thrombosis. There is no popliteal fossa cyst. US/US venous duplex LE LT IMPRESSION: No DVT demonstrated in the left lower extremity.
== END 2020-12-14 10:12 | disposition home or self-care (01) ==
LOC: HO.HMGCX 10:11
PROVIDERS: PCP Internal Medicine; Visit Provider Internal Medicine
DX: R60.0 Localized edema (principal)
CPT/HCPCS: 93971

== ENCOUNTER → 2021-01-18 11:35 | Outpatient (BNVA) | payer MEDICARE, MEDICAID, SELFPAY | PROVIDERS: PCP Internal Medicine; Visit Provider Surgery Vascular Surgery | DX: I83.12 Varicose veins of left lower extremity with inflammation (principal); R22.41 Localized swelling, mass and lump, right lower limb | CPT/HCPCS: 99202 ==

== ENCOUNTER 2021-02-08 10:35 | Outpatient (REF) | payer MEDICARE, MEDICAID, SELFPAY ==
--- NOTE | ~2021-02-08 | US_ITS ---
EXAMINATION: BILATERAL LOWER EXTREMITY VENOUS ULTRASOUND (Reflux Exam) CLINICAL INDICATION: This is a 75-year-old female with venous insufficiency and varicose veins. COMPARISON: Comparison is made to right knee film which demonstrated a 4.5 x 6.4 x 5.2 cm noncalcified soft tissue mass posterior to the knee. TECHNIQUE: Color flow triplex imaging and compression Doppler was performed to evaluate both the deep and the superficial systems bilaterally. To evaluate the superficial system, the examination was performed in the upright position. Color-flow Doppler ultrasound and compression ultrasound were utilized. In addition, maneuvers were utilized to demonstrate reflux. FINDINGS: 1. DEEP VENOUS ULTRASOUND OF THE RIGHT LOWER EXTREMITY: Common Femoral Vein: Compressible, normal respiratory variation and augmented flow. Femoral vein: Compressible, normal color flow and augmentation. Popliteal Vein: Compressible, normal augmentation. Deep Reflux: There is no evidence of reflux in the deep system in either the common femoral vein or the popliteal vein. . There is no evidence of a Toro's cyst. 2. SUPERFICIAL ULTRASOUND WITH DOPPLER OF RIGHT LOWER EXTREMITY GREAT SAPHENOUS VEIN: Saphenofemoral junction: 0.2 cm Mid thigh: 0.2 cm Above knee: 0.3 cm Below knee: 0.1 cm Mid calf: 0.1 cm Ankle: 0.2 cm GSV REFLUX: No evidence of reflux. DUPLICATED GREAT SAPHENOUS VEIN: None SMALL SAPHENOUS VEIN: Upper: 0.2 cm Lower: 0.2 cm SSV REFLUX: No evidence of reflux. VEIN OF GIACOMINI: None Imaged. PERFORATORS: There are 0.2 cm perforators in the calf without reflux to VARICOSITIES: None Imaged 3. DEEP VENOUS ULTRASOUND OF THE LEFT LOWER EXTREMITY: Common Femoral Vein: Compressible, normal respiratory variation and augmented flow. Femoral vein: Compressible, normal color flow and augmentation. Popliteal Vein: Compressible, normal augmentation. Deep Reflux: There is no evidence of reflux in the deep system in either the common femoral vein or the popliteal vein. There is no evidence of a Toro's cyst. 4. SUPERFICIAL ULTRASOUND WITH DOPPLER OF LEFT LOWER EXTREMITY GREAT SAPHENOUS VEIN: Saphenofemoral junction: 0.3 cm Mid thigh: 0.3 cm Above knee: 0.3 cm Below knee: 0.2 cm Mid calf: 0.2 cm Ankle: 0.2 cm GSV REFLUX: No evidence of reflux. DUPLICATED GREAT SAPHENOUS VEIN: None SMALL SAPHENOUS VEIN: Upper: 0.3 cm Lower: 0.2 cm SSV REFLUX: No evidence of reflux. VEIN OF GIACOMINI: None Imaged. PERFORATORS: There is a 0.2 cm claims investigator without reflux. VARICOSITIES: None Imaged US/US venous duplex LE BI IMPRESSION: 1. There are bilateral patent great saphenous veins and small saphenous veins, respectively without evidence of reflux. 2. No varicose veins are seen. 3. There is a bulging mass adjacent to the right knee measuring 5.4 x 3.5 x 5.5 cm. The mass appears solid and is not a simple cyst. This likely corresponds to the mass reported on the plain film of the knee on 11/30/2015 which reported a 4.5 x 6.4 x 5.2 cm soft tissue mass. This appears to be solid by ultrasound and not a cyst. Although this may be stable compared to a plain film, direct comparison is difficult, and it may be better evaluated with an MRI of the knee.
== END 2021-02-08 10:36 | disposition home or self-care (01) ==
LOC: HO.US 10:35
PROVIDERS: PCP Internal Medicine; Visit Provider Surgery Vascular Surgery
DX: I83.12 Varicose veins of left lower extremity with inflammation (principal)
CPT/HCPCS: 93970

== ENCOUNTER → 2021-02-20 13:09 | Outpatient (BNVA) | payer MEDICARE, MEDICAID, SELFPAY | PROVIDERS: PCP Internal Medicine; Visit Provider Surgery Vascular Surgery | DX: I83.12 Varicose veins of left lower extremity with inflammation (principal); E03.9 Hypothyroidism, unspecified; E78.5 Hyperlipidemia, unspecified; E55.9 Vitamin D deficiency, unspecified; M81.0 Age-related osteoporosis without current pathological fracture; Z88.0 Allergy status to penicillin; Z88.2 Allergy status to sulfonamides; Z88.8 Allergy status to other drugs, medicaments and biological substances | CPT/HCPCS: 99212 ==